=== PATIENT | male | born 1960 | race Caucasian/White ===

== ENCOUNTER 2022-10-31 08:11 | Outpatient (CLI) | payer OTHER, SELFPAY ==
[2022-10-31 08:46] LABS: Basophils Percent Auto 0.3 % (0.2-1.2); Eosinophils Absolute Auto 0.1 K/mm3 (0-0.3); Eosinophils Percent Auto 1.9 % (0-4.4); Hematocrit 43.1 % (42.0-52.0); Hemoglobin 14.4 g/dL (14.0-18.0); Lymphocytes Percent Auto 30.1 % (18.3-44.2); Mean Corpuscular HGB Conc 33.4 g/dl (32-36); Mean Corpuscular Volume 92.7 fl (80-100); Mean Platelet Volume 8.5 fl (7.4-10.4); Monocytes Absolute Auto 0.5 K/mm3 (0.1-0.6); Monocytes Percent Auto 14.2 % (2.6-8.5); Neutrophils Percent Auto 53.5 % (45.5-73.1); Platelet Count Result 185 k/mm3 (150-375); Red Blood Count 4.65 M/mm3 (4.6-6.20); White Blood Count 3.7 K/mm3 (4.5-10.0)
[2022-10-31 08:53] LABS: Add Urine Microscopic? NO; Appearance Urine Clear (Clear); Bilirubin Urine Negative (Negative); Blood Urine Negative (Negative); Color Urine Yellow (Yellow); Glucose Urine UA Negative (Negative); Ketones Urine Negative (Negative); Leukocyte Esterase Ur Negative LEU/UL (Negative); Nitrate Urine Negative (Negative); Protein Urine Negative (Negative); Urobilinogen Urine 0.2 mg/dL (<2.0); pH Urine 7.5 (5.0-9.0)
[2022-10-31 08:57] LABS: Prothrombin Time 12.6 Seconds (11.1-14.7)
[2022-10-31 08:58] LABS: Partial Thromboplastin Time 23.9 SECONDS (22.3-36.8)
== END 2022-10-31 08:12 | disposition home or self-care (01) ==
LOC: ANHSURGERY 08:19
PROVIDERS: PCP Physician Assistant; Visit Provider Neurological Surgery
DX: Z01.818 Encounter for other preprocedural examination (principal); M47.896 Other spondylosis, lumbar region; M48.062 Spinal stenosis, lumbar region with neurogenic claudication
CPT/HCPCS: 36415; 81003; 85025; 85610; 85730; 86850; 86900; 86901

== ENCOUNTER 2022-11-12 15:17 | Inpatient (IN) | payer OTHER, SELFPAY ==
[2022-10-30 14:50] VITALS: BMI 30.4
--- NOTE | 2022-10-30 15:10 | SUR.PREOP ---
Report to the Outpatient Waiting Room, entrance under the green pavilion located off [facility], at time 0730on 11/12/22. Planned Procedure Time: 0930. Time changes happen often and if your time is changed the preop area will call you the afternoon before. - You and your visitor will be asked to self-screen and do not enter if you have any COVID symptoms. - Only one visitor is requested with a max of two and NO children visitors are allowed at this time. - The patient visitor may be requested to leave or wait in car when not with patient due to distancing restrictions. - A mask is optional within the hospital. Patients may have clear liquids (water, carbonated beverages, clear teas, apple juice) until 3 hours prior to surgery with a maximum of 20 ounces. - No food from midnight until time of surgery Take the following medications with a SIP of water the morning of surgery: __EYE DROPS_ Medications to discontinue per physician Date to take last dose Please no make-up, nail somali, hairspray, perfume, deodorant, or body powder the day of surgery. No jewelry (including any body piercings) or valuables the day of surgery, leave them at home. Please take a shower or bath the night before, or the morning of, surgery with an antibacterial soap. Wear comfortable, loose fitting clothing - Jewelry must be removed prior to entering the operating room. Rings and piercings that are not removed may be cut off. - The hospital will not accept responsibility for valuables. - Please leave all valuables, including medications, at home the day of surgery. If you are going home after surgery, a licensed maintenance truck driver must drive you home. - NO public transportation without another adult if you receive anesthesia. - We recommend that an adult stay with you for 24 hours following discharge. - We also recommend that you do not drive, make important decision, drink alcoholic beverages, or take any drugs that were not prescribed by your health care provider for at least 24 hours after your discharge time. Follow any additional instructions given to you from your surgeon. If you or anyone in your household have experienced Covid symptoms in the past week, please notify your surgeon or the nurse liaison at the phone number below for possible testing. Telephone instructions given to patient and asked if any additional questions and then verbalized understanding. Patient advised to call surgeon office or pre surgery nurse liaison [phone] if any additional questions.
[2022-11-12] VITALS (15 sets, daily range): BP systolic 110–143; BP diastolic 64–88; PULSE 58–96; RESP 8–18; TEMP 36–37; O2SAT 95–100
--- NOTE | ~2022-11-12 | XR_ITS ---
EXAMINATION: XR fluoroscopy no charge DATE: 11/12/2022 11:30 IT TECHNICAL ARCHITECT INDICATION: L4-5, L5-S1 POSTERIOR LUMBAR INTERBODY FUSION . TECHNIQUE: 2 fluoroscopic images of the lateral lumbar spine were obtained during L4-S1 posterior lum bar interbody fusion performed by the surgeon. I was not present in the operating room. Fluoroscopy e xposure time was 3.6 seconds. Air Kerma 3.8239 mGy. DAP 0.0758 mGym2. COMPARISON: None FINDINGS: Probe localization of the posterior element of L5 followed by bilateral pedicle screw placement at L3 , L4, and L5 with interbody cages at L4-5 and L5-S1. The pedicle screws in L4 approach, but do not de finitively cross the superior endplate. Retractors overlie the posterior soft tissues. IMPRESSION: Fluoroscopic documentation of L4-S1 posterior lumbar interbody fusion. Please refer to the operative note for complete procedural details . Reviewed, dictated and finalized at location K. TECHNICAL ARCHITECT IMPRESSION: Fluoroscopic documentation of L4-S1 posterior lumbar interbody fusion. Please r efer to the operative note for complete procedural details .
[2022-11-12] MEDS: LACTATED RINGERS 1,000 ML 30 ML IV CONT ×2 (07:49→13:25)
--- NOTE | 2022-11-12 08:20 | P.PNAN_ITS ---
Anes - Initial Pre Proc Eval Procedure: Operation Date: 11/12/22 09:30 Proposed Procedures p L4-5, L5-S1 Posterior Lumbar Interbody Fusion - Zenon Rey MD Date/Time: 11/12/22 08:20 Surgeon: Zenon Rey MD Pre Op Diagnosis: L4-5,L5-S1 severe spondylosis, Patient Data Age: 62 Gender: M Height: 1.89 m Weight: 109 kg Last Vital Signs Temp 36.2 C L 11/12/22 08:05 Pulse 76 11/12/22 08:05 Resp 18 11/12/22 08:05 BP 132/79 11/12/22 08:05 Pulse Ox 100 11/12/22 08:05 O2 Del Method Room Air 11/12/22 08:05 Allergies Allergy/AdvReac Type Severity Reaction Status Date / Time lisinopril Allergy Severe swelling Verified 11/12/22 07:58 tongue bacitracin Allergy Mild Hives Verified 11/12/22 07:58 hydrocodone Allergy Mild Rash Verified 11/12/22 07:58 neomycin Allergy Mild Rash Verified 11/12/22 07:58 Penicillins Allergy Mild Rash Verified 11/12/22 07:58 Home Medications Medication Instructions Recorded Confirmed Type valsartan 160 1 tablet PO DAILY 09/02/22 11/12/22 History mg-hydrochlorothiazide 12.5 mg tablet ibuprofen 200 mg tablet 400 mg PO BID 10/30/22 11/12/22 History timolol maleate 0.5 % eye drops 1 drp EACH EYE DAILY 10/30/22 11/12/22 History Patient hx anesthesia problems: none Family hx anesthesia problems: none Results Review: All pre-operative results and documents have been reviewed as part of the pre- operative evaluation. [facility] Past Medical History Medical History (Updated 11/12/22 @ 08:23 by Mauro Brooks MD) Acute arthritis Chronic pain syndrome Colon polyp Hypertension Surgical History Surgical History H/O hand surgery H/O knee surgery H/O shoulder surgery Previous back surgery Family History Family History Other Diabetes mellitus Heart disease Hypertension Social History Social History Smoking status: Never smoker Second hand tobacco smoke exposure: No Alcohol intake: current Alcohol use details: 10 BEERS/WEEKEND Substance use: never Substance use type: does not use Living arrangements: with family Spiritual care concerns: No Anes - Eval Final PreProcedure Day of Procedure 11/12/22 08:20 Patient weight: obese Heart: regular rate and rhythm Lungs: clear to auscultation Airway: Mallampati scale class II Neurological: alert and oriented Last oral intake: >/= 8 hours ASA classification: III Emergent: no Anesthetic plan: proceed Anesthesia type and monitoring: general ETT and standard monitoring Results Review: All pre-operative results and documents have been reviewed as part of the pre- operative evaluation. Informed Consent: The patient's anesthetic plan and its attendant risks and benefits were discussed with the patient/family/POA. Questions were solicited and answers provided to the satisfaction of the patient/family/POA.
--- NOTE | 2022-11-12 09:28 | PM.IMHP ---
H&P: HPI History of Present Illness Date/Time: 11/12/22 09:28 Chief Complaint: Back and leg pain Narrative: Jason is a 62-year-old gentleman with back and leg pain related to spondylosis, foraminal stenosis and lateral recess stenosis at L4-5 and L5-S1 who presents for radical decompression followed by instrumented interbody fusion at those levels. He has not changed since we last saw him. He does not have specific muscle group weakness or dermatomal numbness. He is not having any bowel or bladder difficulty. Review of Systems Review of Systems: Patient denies shortness of breath, cough, fever, chills, nausea, vomiting, weight loss, weight gain, chest pain, dysuria. He has back and leg pain as above. His review of systems is otherwise negative on 12 systems except as noted PMFSH Past Medical History Medical History Acute arthritis Chronic pain syndrome Colon polyp Hypertension Surgical History Surgical History H/O hand surgery H/O knee surgery H/O shoulder surgery Previous back surgery Family History Family History Other Diabetes mellitus Heart disease Hypertension Social History Social History Smoking status: Never smoker Second hand tobacco smoke exposure: No Alcohol intake: current Alcohol use details: 10 BEERS/WEEKEND Substance use: never Substance use type: does not use Living arrangements: with family Spiritual care concerns: No Meds Home Medications and Allergies Home Medications Medication Instructions Recorded Confirmed Type valsartan 160 1 tablet PO DAILY 09/02/22 11/12/22 History mg-hydrochlorothiazide 12.5 mg tablet ibuprofen 200 mg tablet 400 mg PO BID 10/30/22 11/12/22 History timolol maleate 0.5 % eye drops 1 drp EACH EYE DAILY 10/30/22 11/12/22 History Allergies Allergy/AdvReac Type Severity Reaction Status Date / Time lisinopril Allergy Severe swelling Verified 11/12/22 07:58 tongue bacitracin Allergy Mild Hives Verified 11/12/22 07:58 hydrocodone Allergy Mild Rash Verified 11/12/22 07:58 neomycin Allergy Mild Rash Verified 11/12/22 07:58 Penicillins Allergy Mild Rash Verified 11/12/22 07:58 Vital Signs Vital Signs - 24 hr 11/12/22 08:05 Temperature 97.1 F L Pulse Rate 76 Respiratory Rate 18 Blood Pressure 132/79 Pulse Oximetry 100 Oxygen Delivery Room Air Exam Narrative: Strength is normal in the bilateral lower extremities to direct confrontation. Sensation is intact to light touch throughout the lower extremities. Breathing is unlabored Regular rate Assessment and Plan Assessment and plan (1) Foraminal stenosis of lumbosacral region: Code(s): M48.07 - Spinal stenosis, lumbosacral region Status: Acute (2) Foraminal stenosis of lumbar region: Code(s): M48.061 - Spinal stenosis, lumbar region without neurogenic claudication Status: Acute (3) Lumbar spondylosis: Code(s): M47.816 - Spondylosis without myelopathy or radiculopathy, lumbar region Status: Acute Plan Jason is a 62-year-old gentleman with back and leg pain related to pathology at L4-5 and L5-S1 who presents for decompression and instrumented fusion with interbody fusion at L4-5 and L5-S1. I described to him again that operation, its risks, potential benefits, the operative and postoperative course in detail and answered all his questions personally. He indicates understanding and elects to proceed with that operation.
--- NOTE | 2022-11-12 09:32 | WPDHPUPDATE1 ---
History and Physical Update Update Date/Time: 11/12/22 09:32 History and Physical has been reviewed, including an updated exam of the patient. There are NO changes in the patient's condition. Risks, benefits, and alternatives have been discussed and questions answered. Patient agrees to proceed with procedure.
[2022-11-12] MEDS: ceFAZolin 2 GM/D5W 50 ML 2 GM/50 ML BAG IVPB (09:58)
[2022-11-12] MEDS: BUPIVACAINE/EPINEPHRINE 0.5% 10 ML VIAL INFILTRATE (10:44)
--- NOTE | 2022-11-12 13:20 | W.PM.PROC2 ---
Procedure Note - Detailed Date of Procedure 11/12/22 Pre-op Diagnosis L4-5,L5-S1 severe spondylosis, Post-op Diagnosis Same Procedure Performed L4-5 and L5-S1 complete laminectomy and bilateral facetectomy, L4-5 and L5-S1 complete diskectomy and interbody arthrodesis utilizing titanium interbody device and local autograft, L4-5 and L5-S1 pedicle screw instrumentation Surgeon Zenon Rey MD Filing Machine Operator Alexandra Anesthesia General Indications Jason is a 62-year-old gentleman with back and leg pain related to foraminal stenosis and spondylosis who presents for decompression and fusion at L4-5 and L5-S1. Description of Procedure The patient was brought to the operating room in the supine position, was sedated, intubated and placed under general anesthesia in routine fashion. He was then turned into the prone position on a Bryan frame. The of operation on his back was examined, marked for incision, prepped and draped in routine sterile fashion. Incision was marked over the L4 through S1 spinous processes in the midline. This area was injected 0.5% lidocaine with [id number] epinephrine. Intravenous antibiotics given prior to incision. Incision was made with a 10 blade scalpel down to the lumbodorsal fascia. A subperiosteal dissection of the muscle and soft tissue away from the spinous process and lamina at L4 through S1 was performed with a subperiosteal elevator and Bovie cautery. A verifying x-rays obtained to verify the level of operation. The L4-L5 spinous processes were removed with a Cortes rongeur. Kerrison punches, curved curette and a Leksell rongeur were used to remove the lamina in the midline into the soft contents of the canal were encountered. A Midas Hussein drill was used to resect the pars bilaterally at L4-L5. The inferior articular process and facet of L4-L5 could then be removed bilaterally. These +spinous processes were stripped free of soft tissue and morselized for later use as interbody autograft. Kerrison punches and curved curettes were used to define a plane with the dura and removed bone and ligament flush with the pedicle and through the foramina widely decompressing the exiting nerve roots. With the thecal sac retracted protected the disc space was entered bilaterally using an 11 blade scalpel. Scrapers a very sizes, curettes of various configurations, pituitary rongeur and a rasp were used to remove as much cartilaginous endplate and disc material as possible down to bleeding cortical flat surfaces on the opposing bones. The disc spaces were then sized and 13 mm interbody devices were chosen for L4-5 and 9 mm devices for L5-S1. These were filled with local autograft bone. The disc space was likewise filled with local autograft bone. The interbody devices were then placed with 2-3 mm countersink within the disc space bilaterally. Pedicle screw instrumentation was then performed by observing and palpating the pedicle while a hole was made in the superior circular process above the pedicle using a Midas Hussein drill. The pedicle was then cannulated with a pedicle probe, checked for continuity with the ball probe, tapped with a 5.5 mm tap and a 6.5 x 50 mm screw was placed L4-L5 and a 6.5 x 45 mm screw at S1 bilaterally. Miki placed into the screw heads on either side and secured position using the caps for that purpose. These were definitively tightened with a torque and anti torque device. The wound was then copiously irrigated with bacitracin irrigation all bleeding stopped with bipolar and Bovie cautery and Gelfoam thrombin powder. The wound was then closed in layered fashion with 2-0 Vicryl interrupted sutures in the lumbodorsal fascia and Jaci's layer. 3-0 Vicryl buried interrupted sutures were placed in the dermis and the skin was closed with a running 4-0 Monocryl subcuticular stitch and dressed with Dermabond and a Telfa and Tegaderm dressing. The patient was then allowed to wake up in the operating room and was
[2022-11-12] MEDS: fentaNYL CITRATE INJ (*CRX) 100 MCG/2 ML VIAL 25 MCG IV PUSH ×8 (13:50→14:32)
[2022-11-12] MEDS: KCL 20 MEQ/D5/0.45% SOD CHL 1,000 ML 100 ML IV CONT (15:40)
[2022-11-12] MEDS: oxyCODONE/ACETAMINOPHEN (*CRX) 10-325 MG TABLET 1 TAB PO ×2 (15:41→21:55)
--- NOTE | 2022-11-12 15:48 | ADMGEN ---
This patient, Kleber Palomino, was admitted to 2 Medical Room 253-01. Patient/family oriented to hospital policies and general routines including ID bracelet, bed and alarms, visiting hours, pain management, procedures, bathroom and other care routines, personal items, smoking policy, room service/diet, and visiting hours. Information on how to activate the Rapid Response Team has been discussed. Patient/Family are encouraged to report perceived risks to care and to ask questions if they do not understand what they are told or what they should do.
[2022-11-12] MEDS: PROPARACAINE HCL 0.5% 15 ML OPHTH SOLN 1 DROP LEFT EYE (16:49)
[2022-11-12] MEDS: ARTIFICIAL TEARS OPHTH SOLN 15 ML BOTTLE 1 DROP LEFT EYE (17:41)
[2022-11-12] MEDS: DICLOFENAC SODIUM 0.1% OPHTH SOLN 2.5 ML BOTTLE 1 DROP LEFT EYE (20:23)
[2022-11-12] MEDS: DOCUSATE SODIUM 100 MG CAPSULE PO (20:23)
[2022-11-13] VITALS (7 sets, daily range): BP systolic 97–114; BP diastolic 58–67; PULSE 67–91; RESP 14–16; TEMP 36.3–37.1; O2SAT 97–99
[2022-11-13] MEDS: KCL 20 MEQ/D5/0.45% SOD CHL 1,000 ML 100 ML IV CONT (01:22)
[2022-11-13] MEDS: oxyCODONE/ACETAMINOPHEN (*CRX) 10-325 MG TABLET 1 TAB PO ×3 (04:00→22:36)
[2022-11-13] MEDS: DICLOFENAC SODIUM 0.1% OPHTH SOLN 2.5 ML BOTTLE 1 DROP LEFT EYE ×3 (06:41→21:33)
[2022-11-13] MEDS: DOCUSATE SODIUM 100 MG CAPSULE PO ×2 (09:05→21:33)
[2022-11-13] MEDS: TIMOLOL MALEATE 0.5% OP SOLN 5 ML BOTTLE 1 DROP EACH EYE (09:05)
--- NOTE | 2022-11-13 13:07 | WPDANESPN ---
Anes - Prog Note Post-Op Date/Time: 11/13/22 13:07 Vital Signs: Last Vital Signs Temp 36.4 C 11/13/22 09:56 Pulse 88 11/13/22 09:56 Resp 16 11/13/22 09:56 BP 97/63 L 11/13/22 09:56 Pulse Ox 97 11/13/22 09:56 O2 Del Method Room Air 11/13/22 07:33 O2 Flow Rate 2 11/12/22 14:54 Pain Score (VAS): 0 I/O: Intake & Output 11/12/22 11/13/22 11/13/22 23:59 07:59 15:59 Intake Total 540 1750 530 Output Total 210 1400 450 Balance 330 350 80 Patient Feedback: Patient satisfied with anesthetic care.
[2022-11-13] MEDS: oxyCODONE/ACETAMINOPHEN (*CRX) 5-325 MG TABLET 1 TABLET PO (13:14)
--- NOTE | 2022-11-13 17:48 | WPDNEUROSGPN ---
Progress Note: A&P Assessment and Plan (1) Lumbar spondylosis: Code(s): M47.816 - Spondylosis without myelopathy or radiculopathy, lumbar region Status: Acute (2) Foraminal stenosis of lumbar region: Code(s): M48.061 - Spinal stenosis, lumbar region without neurogenic claudication Status: Acute (3) Foraminal stenosis of lumbosacral region: Code(s): M48.07 - Spinal stenosis, lumbosacral region Status: Acute Assessment and Plan: Patient doing well, post-op day #1 Pain controlled on oral medications Voiding without difficulty May administer stool softener for promotion of BM D/C Hemovac in the morning of 11/13/2022 Will plan for discharge on 11/13/[address] Rey. Time Spent With Patient Time with patient: 15 - 25 minutes Subjective Date/time seen: 11/13/22 16:48 Interval history: Post-op day #1 Patient sitting in the chair upon arrival Has ambulated without difficulty today Denies bowel or bladder incontinence, concerned about the lack of BM, pascal D'C'd this am-voiding without difficulty.. Pain score 5/10, last pain med, reported by patient was approximately 1:00pm which he feels has controlled his pain Reports BLE pain has resolved since surgery Denies weakness or sensory dysfunction to BLE's Review of Systems Review of Systems: All systems reviewed & are unremarkable except as noted in HPI and below Exam Narrative: AO X 3, Speech clear fluent and appropriate Strength is normal in the bilateral lower extremities to direct confrontation. Sensation is intact to light touch throughout the lower extremities. Breathing is unlabored Midline lumbar incision dressing is clean, dry and intact - no drainage, redness or tenderness noted Hemovac remains in place Objective Data Vital Signs Vital Signs: Vital Signs - 24 hr 11/12/22 21:03 11/13/22 00:21 11/13/22 05:21 Temperature 37.0 C 36.9 C 36.8 C Pulse Rate 96 91 80 Respiratory Rate 16 14 14 Blood Pressure 110/64 101/60 109/60 Pulse Oximetry 98 97 99 Oxygen Delivery 11/13/22 07:33 11/13/22 09:56 11/13/22 14:17 Temperature 36.4 C 36.6 C Pulse Rate 88 79 Respiratory Rate 16 16 Blood Pressure 97/63 L 107/60 Pulse Oximetry 97 99 Oxygen Delivery Room Air 11/13/22 11:00 Temperature Pulse Rate Respiratory Rate Blood Pressure Pulse Oximetry 99 Oxygen Delivery Room Air Intake/Output Intake/Output: Intake & Output 11/10/22 11/11/22 11/12/22 11/13/22 23:59 23:59 23:59 23:59 Intake Total 3790 2740 Output Total 330 2009 Balance 3460 730 Meds/Results Medications: Active Medications Generic Name Dose Route Start Last Admin Trade Name Freq PRN Reason Stop Dose Admin Al Hydrox/Mg Hydrox/Simethicone 20 ml 11/12/22 15:17 Mag Hydrox/Al Hydrox/Simeth 30 Ml Udc PO Q4H PRN Indigestion/Heartburn Artificial Tears 1 drop 11/12/22 15:57 11/12/22 17:41 Artificial Tears Ophth Soln 15 Ml Bottle LEFT EYE 1 drop Q2H PRN Administration Dry Eye(s) Bisacodyl 10 mg 11/12/22 15:17 Bisacodyl 10 Mg Suppository RECTAL DAILY PRN Constipation Cyclobenzaprine HCl 10 mg 11/12/22 15:17 Cyclobenzaprine Hcl 10 Mg Tablet PO TID PRN Muscle Spasms Diclofenac Sodium 1 drop 11/12/22 22:00 11/13/22 13:16 Diclofenac Sodium 0.1% Ophth Soln 2.5 Ml Bottle LEFT EYE 11/16/22 21:59 1 drop Q8HR PAKO Administration Docusate Sodium 100 mg 11/12/22 21:00 11/13/22 09:05 Docusate Sodium 100 Mg Capsule PO 100 mg Q12HR PAKO Administration Cefazolin Sodium 1 gm in 50 mls @ 100 mls/hr 11/12/22 18:00 11/13/22 09:30 Ancef 1 Gm/D5w 50 Ml Pm IVPB Infused Q8H PAKO Infusion Miscellaneous Information 0 each 11/12/22 00:01 [place] Duplicate Prn Indication With Percocet - Please Choose Which To Continue XX 12/12/22 00:00 CLARIFY PAKO Ondansetron HCl 4 mg 11/12/22 15:17 Ondansetron Inj 4 M
[2022-11-13] MEDS: BISACODYL 10 MG SUPPOSITORY RECTAL (21:33)
[2022-11-14 00:52] VITALS: BP 104/55; PULSE 79; RESP 14; TEMP 36.4; O2SAT 99
[2022-11-14] MEDS: oxyCODONE/ACETAMINOPHEN (*CRX) 10-325 MG TABLET 1 TAB PO ×2 (04:47→08:53)
[2022-11-14] MEDS: DICLOFENAC SODIUM 0.1% OPHTH SOLN 2.5 ML BOTTLE 1 DROP LEFT EYE (04:49)
[2022-11-14 05:30] VITALS: BP 120/64; PULSE 92; RESP 16; TEMP 37.1; O2SAT 97
[2022-11-14] MEDS: DOCUSATE SODIUM 100 MG CAPSULE PO (08:50)
[2022-11-14] MEDS: TIMOLOL MALEATE 0.5% OP SOLN 5 ML BOTTLE 1 DROP EACH EYE (08:50)
== END 2022-11-14 11:12 | disposition home or self-care (01) | DRG 460 ==
LOC: ANH2MED 15:19
PROVIDERS: Admitting Provider Neurological Surgery; PCP Physician Assistant; Visit Provider Neurological Surgery
PROC: 0SG00AJ Fusion of Lumbar Vertebral Joint with Interbody Fusion Device, Posterior Approach, Anterior Column, Open Approach (ICD-10-PCS; CPT 22612; principal; 2022-11-12 09:30)
DX: M48.061 Spinal stenosis, lumbar region without neurogenic claudication (principal); M47.816 Spondylosis without myelopathy or radiculopathy, lumbar region; G89.4 Chronic pain syndrome; M19.90 Unspecified osteoarthritis, unspecified site; I10 Essential (primary) hypertension; E66.9 Obesity, unspecified; Z68.30 Body mass index [BMI] 30.0-30.9, adult
CPT/HCPCS: 97161; 97165; 97530; 97535; 99199; A9270; C1713; J0330; J0690; J1100; J1170; J2250; J2370; J2405; J2704; J2710; J3010; J3480; J7120

== ENCOUNTER 2022-12-24 10:51 | Outpatient (CLI) | payer OTHER, SELFPAY ==
--- NOTE | ~2022-12-24 | XR_ITS ---
Lumbosacral Spine: AP and lateral views Clinical History: Postoperative Findings: There is posterior fusion hardware extending from L4 through S1, with bilateral rods and tr anspedicular screws present. This fusion devices are present at the L4-L5 and L5-S1 disc spaces. Ther e is advanced degenerative disc narrowing at L3-L4, with mild degenerative disc change at L1-L2 and L 2-L3. There are probable mild facet joint degenerative changes throughout the lumbar spine. The sacro iliac joints are normally outlined. Impression: Postoperative changes from L4 through S1, as detailed above. Additional degenerative changes, as detailed above. Reviewed, dictated and finalized at location M. ENT CARE Impression: Postoperative changes from L4 through S1, as detailed above. Additional degenerative changes, as detailed above.
== END 2022-12-24 10:52 | disposition home or self-care (01) ==
PROVIDERS: PCP Physician Assistant; Visit Provider Neurological Surgery
DX: Z98.890 Other specified postprocedural states (principal)
CPT/HCPCS: 72100

== ENCOUNTER 2023-02-18 13:09 | Outpatient (CLI) | payer OTHER, SELFPAY ==
--- NOTE | ~2023-02-18 | XR_ITS ---
EXAM: XR lumbar spine 2-3V DATE: 02/18/2023 13:30 HISTORY: back pain POST LB SURGERY . COMPARISON: 12/24/2022. FINDINGS: Uncomplicated L4-S1 posterior lumbar fusion hardware and interbody devices 5 nonrib-bearing lumbar-type vertebral bodies. Pedicles intact. Stable grade 1 retrolisthesis at L3-4. Vertebral body heights preserved. Multilevel degenerative disc disease, severe at L3-4. No fracture or dislocation. IMPRESSION: No radiographic evidence of hardware-related complication. Grade 1 listhesis and severe d egenerative disc disease at L3-4.. Reviewed, dictated and finalized at location K. IMPRESSION: No radiographic evidence of hardware-related complication. Grade 1 listhesis and severe degenerative disc disease at L3-4..
== END 2023-02-18 13:10 | disposition home or self-care (01) ==
LOC: ANHIMG 13:11
PROVIDERS: PCP Physician Assistant; Visit Provider Nurse Practitioner Adult Health
DX: M54.50 Low back pain, unspecified (principal); M51.36 Other intervertebral disc degeneration, lumbar region
CPT/HCPCS: 72100

== ENCOUNTER 2023-05-19 09:31 | Outpatient (CLI) | payer OTHER, SELFPAY ==
--- NOTE | ~2023-05-19 | XR_ITS ---
Lumbosacral Spine: AP and lateral views Clinical History: Arthrodesis COMPARISON: 02/18/2023 Findings: Spinal fixation hardware extending from L4 through S1 is unchanged. Osseous alignment is un changed. Stable 3 mm retrolisthesis of L3 over L4. There is stable advanced degenerative disc narrowi ng at L3-L4. There is mild degenerative disc narrowing at L1-L2 and L2-L3. The sacroiliac joints are normally outlined. Impression: No significant change from prior exam. Stable posterior fusion and interbody fusion extending from L4 through S1. Stable 3 mm retrolisthesis of L3 over L4. Stable degenerative changes of the upper lumbar spine, as detailed above. Reviewed, dictated and finalized at location M. Impression: No significant change from prior exam. Stable posterior fusion and interbody fu cody extending from L4 through S1. Stable 3 mm retrolisthesis of L3 over L4. Stable degenerative changes of the upper lumbar spine, as detailed above.
== END 2023-05-19 09:32 | disposition home or self-care (01) ==
PROVIDERS: PCP Physician Assistant; Visit Provider Neurological Surgery
DX: Z98.1 Arthrodesis status (principal)
CPT/HCPCS: 72100